=== PATIENT | male | born 1960 | race Caucasian/White ===

== ENCOUNTER 2016-11-20 05:23 | Inpatient (IN) | payer MEDICARE, OTHER ==
[2016-11-16 12:08] LABS: BASOPHILS 0.3 %; BASOPHILS ABSOLUTE 0.01 10/3/uL (0.0-0.16); EOSINOPHILS 1.3 %; EOSINOPHILS ABSOLUTE 0.05 10/3/uL (0.0-0.53); HEMATOCRIT 36.4 % (40.0-51.0); IMMATURE GRANULOCYTES 0.3 %; IMMATURE GRANULOCYTES ABSOLUTE 0.01 10/3/uL (0.0-0.11); LYMPHOCYTES 13.4 %; LYMPHOCYTES ABSOLUTE 0.53 10/3/uL (0.67-4.30); MEAN CORPUSCULAR HEMOGLOB 28.4 pg (26.0-34.0); MEAN PLATELET VOLUME 9.4 fL (9.2-13.0); MONOCYTES 16.9 %; MONOCYTES ABSOLUTE 0.67 10/3/uL (0.21-1.20); NEUTROPHILS 67.8 %; NEUTROPHILS ABSOLUTE 2.69 10/3/uL (2.02-8.40); RBC DISTRIBUTION WIDTH 18.2 % (12.0-16.0); RED CELL COUNT 4.23 10/6/uL (4.7-6.1)
[2016-11-16 12:13] LABS: MANUAL DIFF NO %; MEAN CORPUSCULAR VOLUME 86.1 fL (80-100); PLATELET COUNT 176 10/3/uL (150-400)
[2016-11-16 12:14] LABS: INTERNATIONAL NORMAL RATI 1.3 UNITS (-); PROTIME (NOT ORD) 16.5 SEC (12.0-14.5)
[2016-11-16 12:26] LABS: BUN (BLOOD UREA NITROGEN) 6 MG/DL (6-23); CALCIUM, SERUM 8.7 MG/DL (8.5-10.4); CHLORIDE, SERUM 100 MMOL/L (96-112); CO2 (CARBON DIOXIDE) 25 MMOL/L (24-34); CREATININE 0.81 MG/DL (0.70-1.30); GFR AFRICAN AMERICAN 114 ML/MIN (>=60); GFR NON AFRICAN AMERICAN 98 ML/MIN (>=60); GLUCOSE, SERUM 72 MG/DL (60-99); SGOT(AST) 22 U/L (5-40); SGPT(ALT) 15 U/L (5-65); SODIUM, SERUM 132 MMOL/L (135-148); TOTAL PROTEIN 7.3 G/DL (6.0-8.5)
[2016-11-16 12:27] LABS: A/G RATIO 0.9 (0.7-1.9); ALBUMIN 3.5 G/DL (3.5-5.0); ALKALINE PHOSPHATASE 81 U/L (45-117); GLOBULIN 3.8 G/DL (2.5-4.1); TOTAL BILIRUBIN 1.9 MG/DL (0-1.2)
--- NOTE | ~2016-11-20 | OP ---
Record Of Operation [facility] [address] [place]. [address] NAME: KARIS ORTIZ : 56 STATUS : ADM IN [facility]#: [id number] AGE: 56 ADM/REG DATE : 11/20/16 MR#: [id number] REPORT SERV DATE: 11/20/16 DICTATED BY: ISMA JIMENEZ DATE: 11/20/16 REPORT STATUS : Draft TRANSCRIBED BY: MYLA DATE: 11/20/16 DATE OF PROCEDURE: 11/20/2016 CENTRAL SUPPLY SUPERVISOR: Polo Carr. PREOPERATIVE DIAGNOSES: 1. Large pericardial effusion. 2. Severe RV dysfunction. 3. Severe tricuspid regurgitation. 4. Severe pulmonary hypertension. 5. Scleroderma. 6. Non-Hodgkin lymphoma. POSTOPERATIVE DIAGNOSES: 1. Large pericardial effusion. 2. Severe RV dysfunction. 3. Severe tricuspid regurgitation. 4. Severe pulmonary hypertension. 5. Scleroderma. 6. Non-Hodgkin lymphoma. OPERATIONS AND PROCEDURES PERFORMED: Subxiphoid pericardial window, transesophageal echo. INTRAOPERATIVE FINDINGS: Approximately 500 mL of pericardial fluid. Transesophageal echo showed severe RV dysfunction with RV dilation, RA dilation, and severe TR. His LV function appeared normal. No significant mitral regurgitation. ESTIMATED BLOOD LOSS: Minimal. COMPLICATIONS: None. TUBES AND DRAINS: A 24-Divehi Néstor to the pericardial space. INDICATIONS FOR PROCEDURE: Mr. Ortiz is a 56-year-old with known severe pulmonary hypertension, severe TR, RV dysfunction who was recently diagnosed with a non-Hodgkin lymphoma, underwent treatment for that. He is having significant exertion fatigue recently and had a repeat echo performed which showed an enlarging circumferential pericardial effusion for which he was referred for evaluation and management. Risks, benefits, and alternatives were discussed with the patient including but not limited to bleeding, infection, stroke, , heart attack, need for future operations. All questions were answered. DETAILS OF PROCEDURE: The patient was brought to the operating room, placed supine on the operating room table. After satisfactory induction of general endotracheal anesthesia, he was prepped and draped in the usual sterile fashion. Local anesthesia was infiltrated along the subxiphoid region. A 3 cm incision was made over the xiphoid. Skin and subcutaneous Record Of Operation [facility] [address] [place]. [address] NAME: KARIS ORTIZ : 56 STATUS : ADM IN PAT#: [id number] AGE: 56 ADM/REG DATE : 11/20/16 MR#: [id number] REPORT SERV DATE: 11/20/16 DICTATED BY: ISMA JIMENEZ DATE: 11/20/16 REPORT STATUS : Draft TRANSCRIBED BY: MYLA DATE: 11/20/16 tissues divided. Linea alba was divided in the midline. Xiphoid was divided in the midline. Retractor was placed under the xiphoid, and dissection was carried out up to the pericardium. The pericardium was incised, and clear pericardial fluid was removed, approximately 460 to 500 mL. It was sent for evaluation. A quarter-size piece of pericardium was removed. Transesophageal echo confirmed resolution of the effusion. A 24- Divehi Néstor was placed into the pericardium and exteriorized. The linea alba was closed with running #1 Stratafix. Subcutaneous tissues closed with a continuation of the Stratafix and the skin closed using 2-0 Quill. Dermabond was placed. The patient was transferred to the PACU in stable condition. [facility]/MYLA Isma Jimenez MD / [id number] CC: MD Denisha Knight N.P. C. Samuel Ledford, M.D.
[~2016-11-20 05:23] MED LIST: ACET500CAP PO; ADCIRCA20 MG PO; ALBUTEROL5 INH; ANOROELLIPTA INH; ASA5GR PO; ASAB PO; ASABAYER PO; CLARIT10 PO; DULERA 100 MCG/13 GM INH; FERROUS SULF325 M1 PO; KLOR-CON M2020 MEQ PO; L20 PO; L80 PO; LETAIRIS5 MG PO; LEVAQUIN750 MG PO; LEVOTHYROXIN125 MCG PO; MAGOX4 PO; METAMUCIL CAN7 OZ PO; MUCINEX DM1 TAB OR; P10; P20 PO; PROTONIX PO; SPIRIVA INH; STERAPRED DS10 MG PO; SYN125 PO; SYNTHROID137 MCG PO; X5 PO; [UNRECOGNIZED DRUG - OTHER] PO
[2016-11-20 08:38] LABS: BASOPHILS 0.2 %; BASOPHILS ABSOLUTE 0.01 10/3/uL (0.0-0.16); EOSINOPHILS 1.7 %; EOSINOPHILS ABSOLUTE 0.08 10/3/uL (0.0-0.53); IMMATURE GRANULOCYTES 0.2 %; IMMATURE GRANULOCYTES ABSOLUTE 0.01 10/3/uL (0.0-0.11); LYMPHOCYTES 14.4 %; LYMPHOCYTES ABSOLUTE 0.66 10/3/uL (0.67-4.30); MEAN CORPUS HGB CONC 34.2 g/dL (32.0-36.0); MEAN PLATELET VOLUME 9.1 fL (9.2-13.0); MONOCYTES 11.5 %; MONOCYTES ABSOLUTE 0.53 10/3/uL (0.21-1.20); PLATELET COUNT 139 10/3/uL (150-400); RBC DISTRIBUTION WIDTH 17.9 % (12.0-16.0); RED CELL COUNT 3.79 10/6/uL (4.7-6.1); WHITE BLOOD CELLS 4.6 10/3/uL (4.5-10.5)
[2016-11-20 08:42] LABS: HEMATOCRIT 32.2 % (40.0-51.0); MANUAL DIFF NO %
[2016-11-20 08:51] LABS: CALCIUM, SERUM 7.9 MG/DL (8.5-10.4); CHLORIDE, SERUM 102 MMOL/L (96-112); CO2 (CARBON DIOXIDE) 21 MMOL/L (24-34); CREATININE 0.92 MG/DL (0.70-1.30); GFR AFRICAN AMERICAN 106 ML/MIN (>=60); GFR NON AFRICAN AMERICAN 91 ML/MIN (>=60); GLUCOSE, SERUM 75 MG/DL (60-99); SODIUM, SERUM 131 MMOL/L (135-148)
[2016-11-20 08:53] LABS: BUN (BLOOD UREA NITROGEN) 10 MG/DL (6-23)
[2016-11-21 03:43] LABS: BASOPHILS 0.1 %; BASOPHILS ABSOLUTE 0.01 10/3/uL (0.0-0.16); EOSINOPHILS 0.1 %; EOSINOPHILS ABSOLUTE 0.01 10/3/uL (0.0-0.53); HEMOGLOBIN 12.6 g/dL (13.6-17.8); IMMATURE GRANULOCYTES 0.1 %; IMMATURE GRANULOCYTES ABSOLUTE 0.01 10/3/uL (0.0-0.11); LYMPHOCYTES 9.2 %; LYMPHOCYTES ABSOLUTE 0.77 10/3/uL (0.67-4.30); MEAN CORPUS HGB CONC 33.9 g/dL (32.0-36.0); MEAN CORPUSCULAR HEMOGLOB 29.1 pg (26.0-34.0); MEAN CORPUSCULAR VOLUME 85.9 fL (80-100); MEAN PLATELET VOLUME 9.8 fL (9.2-13.0); MONOCYTES 12.2 %; MONOCYTES ABSOLUTE 1.02 10/3/uL (0.21-1.20); NEUTROPHILS 78.3 %; NEUTROPHILS ABSOLUTE 6.55 10/3/uL (2.02-8.40); PLATELET COUNT 156 10/3/uL (150-400); RBC DISTRIBUTION WIDTH 17.3 % (12.0-16.0); RED CELL COUNT 4.33 10/6/uL (4.7-6.1)
[2016-11-21 03:45] LABS: HEMATOCRIT 37.2 % (40.0-51.0); MANUAL DIFF NO %; WHITE BLOOD CELLS 8.4 10/3/uL (4.5-10.5)
[2016-11-21 03:53] LABS: BUN (BLOOD UREA NITROGEN) 14 MG/DL (6-23); CALCIUM, SERUM 8.4 MG/DL (8.5-10.4); CHLORIDE, SERUM 97 MMOL/L (96-112); CO2 (CARBON DIOXIDE) 23 MMOL/L (24-34); CREATININE 1.22 MG/DL (0.70-1.30); GFR AFRICAN AMERICAN 75 ML/MIN (>=60); GFR NON AFRICAN AMERICAN 65 ML/MIN (>=60); GLUCOSE, SERUM 103 MG/DL (60-99); POTASSIUM, SERUM 5.2 MMOL/L (3.5-5.3); SODIUM, SERUM 127 MMOL/L (135-148)
== END 2016-11-23 12:48 | disposition home or self-care (01) | DRG 271 ==
LOC: SDC/OF 05:23 → 5NO 10:46
PROVIDERS: Thoracic Surgery (Cardiothoracic Vascular Surgery)
PROC: 0W9D00Z Drainage of Pericardial Cavity with Drainage Device, Open Approach (ICD-10-PCS; principal; 2016-11-20 06:45)
DX: I31.3 Pericardial effusion (noninflammatory) (principal); E87.1 Hypo-osmolality and hyponatremia; I27.2 Other secondary pulmonary hypertension; M34.9 Systemic sclerosis, unspecified; I36.1 Nonrheumatic tricuspid (valve) insufficiency; J44.9 Chronic obstructive pulmonary disease, unspecified; Z87.891 Personal history of nicotine dependence; E03.9 Hypothyroidism, unspecified; K21.9 Gastro-esophageal reflux disease without esophagitis; Z85.72 Personal history of non-Hodgkin lymphomas
CPT/HCPCS: 36415; 71010; 71020; 80048; 80053; 82962; 85025; 85610; 86850; 86900; 86901; 87015; 87070; 87075; 87102; 87116; 87205; 88112; 88305; 93005; 93312; 93320; 93325; 94640; A9270-GY; C1751; C1769; J0690; J2250; J2370; J2405; J2710; J2795; J3010